=== PATIENT | female | born 1955 | race Caucasian/White ===

== ENCOUNTER 2017-06-23 17:59 | Inpatient (IN) | payer OTHER ==
[2017-06-23 18:20] LABS: BASO % 0.5 % (0.0-1.0); EOS # 0.1 10^3/uL (0.0-0.50); EOS % 1.1 % (0.0-3.0); HEMATOCRIT 42.9 % (36.0-47.0); HEMOGLOBIN 14.4 g/dl (12.0-15.5); IMMATURE GRANULOCYTE % 0.3 % (0-3.0); LYMPH # 2.1 10^3/uL (1.5-4.5); LYMPH % 24.2 % (24.0-44.0); MEAN CORPUSCULAR HEMOGLOBIN 34.5 pg (27.0-33.0); MEAN CORPUSCULAR HGB CONC 33.6 g/dl (32.0-36.5); MEAN CORPUSCULAR VOLUME 102.9 fl (80.0-96.0); MONO # 0.9 10^3/uL (0.0-0.8); MONO % 10.7 % (0.0-5.0); NEUTROPHILS # 5.5 10^3/uL (1.8-7.7); NEUTROPHILS % 63.2 % (36.0-66.0); PLATELET COUNT, AUTOMATED 261 10^3/uL (150-450); RED BLOOD COUNT 4.17 10^6/uL (4.00-5.40); RED CELL DISTRIBUTION WIDTH 13.9 % (11.5-14.5); WHITE BLOOD COUNT 8.7 10^3/uL (4.0-10.0)
[2017-06-23 18:37] LABS: INR 0.88
[2017-06-23 18:38] LABS: PARTIAL THROMBOPLASTIN TIME 25.4 SECONDS (26.8-37.9)
[2017-06-23 18:40] LABS: BEDSIDE GLUCOSE 118 MG/DL (80-115)
[2017-06-23 18:44] LABS: ANION GAP 8 MEQ/L (8-16); BLOOD UREA NITROGEN 7 MG/DL (7-18); CALCIUM LEVEL 9.3 MG/DL (8.8-10.2); CARBON DIOXIDE LEVEL 30 MEQ/L (21-32); CHLORIDE LEVEL 102 MEQ/L (98-107); CK-MB VALUE MASS < 1.0 NG/ML (<3.6); CPK CREATINE PHOSPHOKINASE 45 U/L (26-192); CREATININE FOR GFR 0.71 MG/DL (0.55-1.30); GLOMERULAR FILTRATION RATE > 60.0 (>45); GLUCOSE, FASTING 107 MG/DL (70-100); MB/CK RELATIVE INDEX 2.22 (< OR =4); SODIUM LEVEL 140 MEQ/L (136-145); TROPONIN I < 0.02 NG/ML (< 0.10)
[2017-06-23] MEDS: TETANUS/DIPHTHERIA TOX ADSORB ADULT 0.5ML SYR/VIAL (90714) IM (21:45)
[2017-06-23] MEDS ORDERED: ACETAMINOPHEN TAB 650MG DOSE (2X325MG) PO (22:45)
[2017-06-23] MEDS ORDERED: SYMBICORT 160/4.5MCG INHALER 6GM INH (22:45)
[2017-06-23] MEDS: hydroCHLOROthiazide 25 MG TAB PO (22:52)
[2017-06-23] MEDS: ATORVASTATIN 20 MG TAB PO (22:52)
[2017-06-23] MEDS: IRBESARTAN 150 MG TAB PO (23:01)
[2017-06-23] MEDS: OCUVITE 1 TAB PO (23:01)
[2017-06-24] MEDS ORDERED: SLF 3 ML SYR IV (00:45)
[2017-06-24] MEDS: SLF 3 ML SYR IV ×3 (05:30→21:40)
[2017-06-24 06:19] LABS: CHOLESTEROL LEVEL 175 MG/DL (<200); CHOLESTEROL RISK RATIO 3.125 (<5); HDL CHOLESTEROL 56 MG/DL (>40); LDL CHOLESTEROL 104.4 MG/DL (<100); NON-HDL-C 119 MG/DL; TRIGLYCERIDES LEVEL 73 MG/DL (<150)
[2017-06-24] MEDS: ASPIRIN 81 MG ENTERIC TAB PO (08:17)
[2017-06-24] MEDS: ENOXAPARIN 40 MG/0.4 ML SYRINGE (J1650) SC (08:18)
[2017-06-24] MEDS: diphenhydrAMINE 50 MG CAP PO ×2 (09:35→21:42)
[2017-06-24] MEDS: IRBESARTAN 150 MG TAB PO (21:39)
[2017-06-24] MEDS: ATORVASTATIN 20 MG TAB PO (21:39)
[2017-06-24] MEDS: hydroCHLOROthiazide 25 MG TAB PO (21:39)
[2017-06-24] MEDS: OCUVITE 1 TAB PO (21:39)
[2017-06-25] MEDS: SLF 3 ML SYR IV (05:39)
[2017-06-25] MEDS: ENOXAPARIN 40 MG/0.4 ML SYRINGE (J1650) SC (08:02)
[2017-06-25] MEDS: diphenhydrAMINE 50 MG CAP PO (08:02)
[2017-06-25] MEDS: ASPIRIN 81 MG ENTERIC TAB PO (08:02)
== END 2017-06-25 12:02 | disposition home or self-care (01) | DRG 45 ==
LOC: M ED 17:59 → M ED INP 22:31 → M PCU 23:50
DX: I63.9 Cerebral infarction, unspecified (principal); I10 Essential (primary) hypertension; J45.30 Mild persistent asthma, uncomplicated; E78.5 Hyperlipidemia, unspecified; Z79.899 Other long term (current) drug therapy